=== PATIENT | female | born 1980 | race Two or more races ===

== ENCOUNTER 2019-03-27 10:00 | Emergency (ER) | payer MEDICAID ==
[~2019-03-27] VITALS: Ht 149.9 cm; Wt 75.3 kg
--- NOTE | 2019-03-27 10:11 | NUR ---
BIB SELF C/O SYNCOPAL EPISODE AT 6AM, +HEADTRAUMA, L SIDE CHEST PAIN RADIATING TO BACK. TO ER BED 10, HOOKED TO MONITOR, CHANGED TO HOSP GOWN, WARM BLANKET PROVIDED. PATIENT AOX4 , BREATHING EVEN AND UNLABORED. AWAITING MD KNOWLES.
--- NOTE | 2019-03-27 10:18 | NUR ---
DR DENSON AT BEDSIDE
[2019-03-27] MEDS ORDERED: ONDANSETRON HCL/PF 4 MG/2 ML VIAL IVP ONE (10:30)
[2019-03-27] MEDS ORDERED: IV NS 0.9% 1,000 ML BAG IV ONE (10:30)
[2019-03-27] MEDS ORDERED: HYDROMORPHONE INJ 2 MG/ML DISP.SYRIN IV ONE (10:30)
[2019-03-27] MEDS ORDERED: ONDANSETRON HCL/PF 4 MG/2 ML VIAL ONE (11:13)
[2019-03-27] MEDS ORDERED: HYDROMORPHONE 1 MG/1 ML DISP.SYRIN ONE ×2 (11:13→12:33)
[2019-03-27 11:34] LABS: APPEARANCE,URINE Cloudy (CLEAR); BILIRUBIN,URINE Negative (NEGATIVE); BLOOD, URINE Negative Ery/uL (NEGATIVE); COLOR,URINE Yellow (YELLOW); KETONES,URINE Negative (NEGATIVE); LEUKOCYTE ESTERASE ,URINE Trace (NEGATIVE); NITRITE, URINE Negative (NEGATIVE); PROTEIN,URINE Negative (NEGATIVE); UGLUCOSE Negative (NEGATIVE); UROBILINOGEN,URINE 0.2 EU/dL (0.2)
[2019-03-27 11:39] LABS: CALCIUM, SERUM 9.4 mg/dL (8.5-10.1); CREATININE 0.9 mg/dL (0.6-1.3); POTASSIUM 3.6 mmol/L (3.5-5.1)
[2019-03-27 11:42] LABS: BACTERIA,URINE Few /HPF (None Seen); RBC,URINE 0-2 /HPF (0-2); SQUAMOUS EPITHELIAL CELL,UR Few /HPF (None Seen)
[2019-03-27 11:46] LABS: ALBUMIN 3.6 g/dL (3.4-5.0); BILIRUBIN,TOTAL 0.3 mg/dL (0.2-1.0); TOTAL PROTEIN, SERUM 8.2 g/dL (6.4-8.2)
[2019-03-27 12:03] LABS: BASOPHILS % (AUTO) 0.5 % (0.0-2.0); EOSINOPHILS % (AUTO) 2.8 % (0.0-6.0); HEMATOCRIT 36 % (33-45); HEMOGLOBIN 11.5 g/dL (11.5-14.8); LYMPHOCYTES # (AUTO) 1.8 /CMM (0.8-4.8); LYMPHOCYTES % (AUTO) 27.1 % (20.0-44.0); MEAN CORPUSCULAR HGB CONC 32 g/dl (31.0-36.0); MEAN CORPUSCULAR VOLUME 85 fL (82-100); MONOCYTES # (AUTO) 0.6 /CMM (0.1-1.30); MONOCYTES % (AUTO) 8.2 % (2.0-12.0); NEUTROPHILS # (AUTO) 4.1 /CMM (1.8-8.9); NEUTROPHILS % (AUTO) 61.4 % (43.0-81.0); PLATELET COUNT (AUTO) 307 /CMM (150-450); RED BLOOD CELL COUNT(AUTO) 4.28 MIL/uL (4.0-5.2); WHITE BLOOD COUNT (AUTO) 6.7 K/uL (4.3-11.0)
[2019-03-27] MEDS ORDERED: IOHEXOL-350 100 ML VIAL IV ONE (12:21)
[2019-03-27] MEDS ORDERED: IV NS 0.9% 250 ML IV ONE (12:21)
[2019-03-27] MEDS ORDERED: CT SWABBABLE VALVE TRANS SET 1 EA INFUS.SET MC ONE (12:21)
--- NOTE | 2019-03-27 12:59 | NUR ---
WHEELED OUT VIA GURNEY FOR CT SCAN OF ABDOMEN PELVIS
[2019-03-27] MEDS ORDERED: HYDROMORPHONE 1 MG/1 ML DISP.SYRIN IV ONE (13:00)
--- NOTE | 2019-03-27 15:16 | NUR ---
BACK FROM CTA
--- NOTE | 2019-03-27 15:22 | NUR ---
NM LUNG V/Q WAS COMPLETED. TECH:RB
--- NOTE | 2019-03-27 16:35 | NUR ---
IV removed. Catheter intact and site benign. Pressure and 4x4 applied to site. No bleeding noted.Patient discharged to home in stable condition. Written and verbal after care instructions given. Patient verbalizes understanding of instruction.
[2019-03-27 16:36] VITALS: BP 121/70
== END 2019-03-27 16:36 | disposition home or self-care (01) ==
LOC: ER 10:01
DX: N20.0 Calculus of kidney (principal); R42 Dizziness and giddiness; Z88.6 Allergy status to analgesic agent; Z88.8 Allergy status to other drugs, medicaments and biological substances; Z86.711 Personal history of pulmonary embolism; Z60.2 Problems related to living alone
CPT/HCPCS: 36415; 71045; 74176; 76705; 76937; 78582; 80048; 80076; 81001; 83690; 84703; 85025; 85378; 93005; 93308; 96361; 96374; 96375; 96376; 99284; A9540; A9567; J1170; J2405; J7030; J7050; Q9967; 81000-TC